=== PATIENT | female | born 1990 | race Caucasian/White ===

== ENCOUNTER 2019-12-25 22:47 | Emergency (ER) | payer OTHER ==
--- NOTE | 2019-12-25 22:52 | PDOC ---
Rapid Medical Evaluation Time Seen by Provider: 12/25/19 22:49 Medical Evaluation: 12/25/19 22:50 I performed a brief in-person evaluation of this patient. Pt is a 29 y/o female with right mid abdominal pain for the last 1 week. The patient denies any vomiting. She denies any fevers. She also admits to having vaginal bleeding for the last several months straight and has been seeing her actuarial manager for this. She has been getting worked up by for her vaginal bleeding. The patient denies any dysuria. Pertinent physical exam findings: Right mid abdominal tenderness to palpation, walking without difficulty I have ordered the following: labs, saline lock, imaging deferred to treated provider discretion Patient to proceed to ED for further evaluation. Discharge Disposition - Diagnosis Abdominal pain - Referrals - Patient Instructions - Post Discharge Activity
[2019-12-25 23:06] VITALS: BMI 44.8
--- NOTE | 2019-12-25 23:34 | PDOC ---
Documentation entered by Thomas Gaxiola SCRIBE, acting as scribe for Jose Ramon Braswell MD. Jose Ramon Braswell MD: This documentation has been prepared by the allyibe, Thomas Gaxiola SCRIBE, under my direction and personally reviewed by me in its entirety. I confirm that the documentation accurately reflects all work, treatment, procedures, and medical decision making performed by me. Attending Attestation - Resident Resident Name: PoKim - ED Attending Attestation I have performed the following: I have examined & evaluated the patient, The case was reviewed & discussed with the resident, I agree w/resident's findings & plan, Exceptions are as noted - HPI HPI: 12/25/19 23:30 The patient is a 29 year old female with no significant past medical history who presents to the emergency department with intermittent 5-10/10 right lower quadrant pain which sometimes radiates to the sheldon-umbilical region. Pt states the pain began a week ago with no known exacerbating or alleviating factors. She denies N/V. Denies diarrhea/constipation. Denies F/C. The patient also endorses vaginal bleeding for the last six months for which she has seen her MEDICAL TECHNOLOGIST MICROBIOLOGY. Allergies: NKDA Surgical Hx: section, Abdominoplasty - Physicial Exam PE: 12/25/19 23:12 GENERAL: Awake, alert, and fully oriented, in no acute distress. HEAD: No signs of trauma EYES: PERRLA, EOMI, sclera anicteric, conjunctiva clear ENT: Auricles normal inspection, hearing grossly normal, nares patent, oropharynx clear without exudates. Moist mucosa NECK: Nontender, no stepoffs, Normal ROM, supple, no lymphadenopathy, JVD, or masses LUNGS: Breath sounds equal, clear to auscultation bilaterally. No wheezes, and no crackles HEART: Regular rate and rhythm, normal S1 and S2, no murmurs, rubs or gallops ABDOMEN: + RLQ TTP, normoactive bowel sounds. No guarding, no rebound. No masses EXTREMITIES: Normal range of motion, no edema. No clubbing or cyanosis. No cords, erythema, or tenderness NEUROLOGICAL: Cranial nerves II through XII intact. 5/5 strength and sensation in all extremities, Normal speech, normal gait, normal cerebellar function SKIN: Warm, Dry, normal turgor, no rashes or lesions noted. - Medical Decision Making 12/25/19 23:35 29 F with RLQ pain x 1 week. Will obtain TVUS to r/o torsion. CT to r/o appy. - Labs, HCG - UA, UCx - TVUS - CTAP Pt signed out to Dr. Regalado at 12am, pending US and CT results Discharge - Discharge Information Problems reviewed: Yes Clinical Impression/Diagnosis: Abdominal pain, Diverticulitis Condition: Stable Disposition: HOME - Additional Discharge Information Prescriptions: Sulfamethoxazole/Trimethoprim [Bactrim Ds Tablet] 1 each PO BID #14 tablet metroNIDAZOLE [Flagyl -] 500 mg PO TID #21 tablet - Follow up/Referral Referrals: Xenia Matias MD [Staff Physician] - - Patient Discharge Instructions Patient Printed Discharge Instructions: DI for Diverticulitis Additional Instructions: You came into the ER for right sided abdominal pain. In the ED, you were evaluated with physical exam, ultrasound, and CT scan of your abdomen. Your ultrasound results were normal. The scan of your abdomen indicates that you have diverticulitis. You do not appear to be an acute need for immediate hospitalization. You were advised to follow up with your primary care doctor within 1 week. You were given a referral to Dr. Matias, a medical records receptionist. Call today to schedule appointment. Please bring a copy of your CT scan report to your a ppointment. You were given a prescription for Bactrim and Flagyl. Take Bactrim two times a day and take Flagyl three times a day for seven days. Come back to the ER immediately with any new or worsening concerns, such as high fevers, severe pain, constipation, or if unable to take your antibiotics. Thank you for coming to the [facility] ER. We hope you feel better soon! - Post Discharge Activity
[2019-12-25 23:59] LABS: EPI CELLS 13 /uL (0-25.1); HCG,QUALITATIVE URINE Negative; HYALINE CASTS 1 /uL (0-3.1); URINE APPEARANCE CLEAR; URINE BACTERIA 130 /uL (0-1359); URINE BILIRUBIN NEGATIVE (NEGATIVE); URINE COLOR YELLOW; URINE GLUCOSE (UA) NEGATIVE (NEGATIVE); URINE KETONE TRACE (NEGATIVE); URINE LEUK ESTERASE NEGATIVE (NEGATIVE); URINE NITRITE NEGATIVE (NEGATIVE); URINE PROTEIN NEGATIVE (NEGATIVE); URINE RBC 9 /uL (0-23.9); URINE WBC 4 /uL (0-25.8)
--- NOTE | 2019-12-26 00:18 | PDOC ---
History of Present Illness - General Chief Complaint: Pain Stated Complaint: ABD PAIN/VAGINAL BLEEDING Time Seen by Provider: 12/25/19 22:49 - History of Present Illness Initial Comments: Pt is a 29yo F with no significant PMH who presents with RLQ pain. States that pain has been intermittent over the last 8 days. Denies any notable triggers, notes that moving to a sitting position may aggravate pain. States that pain is sharp, 10/10 at worst, 5/10 at best, with occasional radiation to umbilicus described as vague, uncomfortable pain at umbilicus. Denies any aggravating or relieving factors. a/w dizziness; denies fevers, chills, n/v, diarrhea, chest pain, SOB. Reports 6-7mo history of light vaginal bleeding, seen by PCP, trialed on OCP for 3mo with relief of bleeding; stopped taking OCP 1 month ago, and daily bleeding has resumed. Is following up with PCP for this issue. PCP: Sandeep PMH: denies PSHx: C section, abdominoplasty Meds: denies All: denies Past History - Medical History Allergies/Adverse Reactions: Allergies Allergy/AdvReac Type Severity Reaction Status Date / Time No Known Allergies Allergy Verified 12/25/19 22:51 Home Medications: Ambulatory Orders Sulfamethoxazole/Trimethoprim [Bactrim Ds Tablet] 1 each PO BID #14 tablet 12/26/19 metroNIDAZOLE [Flagyl -] 500 mg PO TID #21 tablet 12/26/19 Anemia: No Asthma: No Cancer: No Cardiac Disorders: No COPD: No - Psycho-Social/Smoking History Smoking History: Never smoked - Substance Abuse Hx (Audit-C & DAST Scrn) How often the patient has a drink containing alcohol: Never Score: In Men: 4 or > Positive; In Women: 3 or > Positive: 0 Screen Result (Pos requires Nsg. Audit-10AR): Negative Review of Systems - Review of Systems Comments:: CONSTITUTIONAL:denies fever, chills, diaphoresis, generalized weakness, loss of appetite HEENT:denies rhinorrhea, nasal congestion, sore throat, ear pain, eye pain, visual Changes CARDIOVASCULAR:denies chest pain, palpitations, lightheadedness RESPIRATORY:denies cough, shortness of breath, wheezing GASTROINTESTINAL: reports abdominal pain, denies nausea, vomiting, diarrhea, constipation, melena, hematochezia GENITOURINARY:reports vaginal bleeding, denies dysuria, frequency, urgency, vaginal discharge MUSCULOSKELETAL:denies myalgia, arthralgia, back pain HEMATOLOGIC/IMMUNOLOGIC:denies easy bleeding, easy bruising ENDOCRINE: denies unexplained weight gain, unexplained weight loss NEUROLOGIC:reports dizziness, denies headache, loss of consciousness, bladder or bowel incontinence SKIN:denies rash, itching, pallor *Physical Exam - Vital Signs Last Vital Signs Temp Pulse Resp BP Pulse Ox 98.8 F 99 H 20 124/80 100 12/25/19 22:52 12/25/19 22:52 12/25/19 22:52 12/25/19 22:52 12/25/19 22:52 - Physical Exam General: awake, alert, fully oriented, in no acute distress, well developed, well nourished Head: normocephalic, atraumatic Eyes: PERRL, EOMI, anicteric sclera, conjunctiva clear ENT: hearing grossly normal, No nasal congestion Moist mucous membranes Lung: equal breath sounds b/l, CTA b/l, no crackles, wheezes; no distress, speaks full sentences Heart: RRR, normal S1, S2, no murmurs, rubs, gallops Abdomen: soft, tender to palpation in RLQ, normoactive bowel sounds, no guarding, rebound, masses; +Rosvings, +Psoas, -obturator Pelvic exam: external genitalia without lesions, no cervical motion tenderness, no discharge, scant amounts of blood, uterus is nontender and normal in size, adnexa are nontender and without masses Extremities: no edema, no erythema or tenderness, DP/PT pulses 2+ and symmetric, no clubbing, cyanosis Neuro: CN2-12 grossly intact, moves all extremities, normal speech, normal gait, sensation intact Skin: warm, dry, no rashes or lesions noted Medical Decision Making - Medical Decision Making Pt is a 29y F with no significant PMH who presents with RLQ abdominal pain. Vital Signs Period Temp Pulse Resp BP Sys/Woods Pulse Ox Last 24 Hr 98.8 F 99 20 124/80 100 DDx: appendicitis, ovarian pathology - torsion, cyst, hemorrhage, diverticulitis Plan: labs, CT a/p, TVUS Patient states that she does not want pain medication. Attempted ultrasound guided IV two times, pt was uncooperative and refused further attempts to place IV. UA with 3+ blood, expected given complaints of vaginal bleeding 12/26/19 01:23 Transvaginal ultrasound - normal exam; Transabdominal pelvic ultrasound: No mass identified. Endovaginal pelvic ultrasound:Uterus is anteverted and measures 8.3centimeters in length. The endometrium is 5millimeters in thickness. There are no fibroids. The right ovary measures 2.3centimeters in length, appears normal and demonstrates normal flow. Left ovary measures 2.0centimeters in length, appears normal and demonstrates normal flow. There is no significant free fluid. Pelvic duplex: There is normal arterial and venous flow in both ovaries. 12/26/19 01:44 CT A/P FINDINGS: Lung bases are clear. The visualized cardiac chambers are normal size and configuration. Normal liver, gallbladder, pancreas, spleen, adrenal glands and kidneys. Status post gastric sleeve. The abdominal small and large bowel are normal. There is no aortic aneurysm. There is no significant retroperitoneal lymphadenopathy. The pelvic small and large bowel are notable for mild focal inflammation of the posterior aspect of the proximal ascending colon with junctional luminal air felt represent diverticula and findings secondary to diverticulitis. No abscess or free air. The appendix is normal. The uterus and adnexal structures are normal. Urinary bladder is unremarkable. There is no pelvic free fluid. No discrete pelvic lymphadenopathy is identified. IMPRESSION: Uncomplicated right colonic diverticulitis. Given one dose of Bactrim DS and Flagyl, sent home with 7 day course of bactrim DS BID and Flagyl 500mg TID. Patient stable for discharge. Informed of all lab and imaging results. Given follow up instructions and strict return precautions. Patient expressed understanding and agree to plan. Disposition Discharge to home Discharge - Discharge Information Problems reviewed: Yes Clinical Impression/Diagnosis: Abdominal pain, Diverticulitis Condition: Stable Disposition: HOME - Additional Discharge Information Prescriptions: Sulfamethoxazole/Trimethoprim [Bactrim Ds Tablet] 1 each PO BID #14 tablet metroNIDAZOLE [Flagyl -] 500 mg PO TID #21 tablet - Follow up/Referral Referrals: Xenia Matias MD [Staff Physician] - - Patient Discharge Instructions Patient Printed Discharge Instructions: DI for Diverticulitis Additional Instructions: You came into the ER for right sided abdominal pain. In the ED, you were evaluated with physical exam, ultrasound, and CT scan of your abdomen. Your ultrasound results were normal. The scan of your abdomen indicates that you have diverticulitis. You do not appear to be an acute need for immediate hospitalization. You were advised to follow up with your primary care doctor within 1 week. You were given a referral to Dr. Matias, a [employer] lakes boatman. Call today to schedule appointment. Please bring a copy of your CT scan report to your appointment. You were given a prescription for Bactrim and Flagyl. Take Bactrim two times a day and take Flagyl three times a day for seven days. Come back to the ER immediately with any new or worsening concerns, such as high fevers, severe pain, constipation, or if unable to take your antibiotics. Thank you for coming to the [facility] ER. We hope you feel better soon! - Post Discharge Activity
[2019-12-26] MEDS ORDERED: SULFAMETHOXAZOLE/TRIMETHOPRIM 800MG/160MG D.S. TABLET PO ONE (01:51)
[2019-12-26] MEDS ORDERED: metroNIDAZOLE 250 MG TABLET PO ONE (01:52)
[2019-12-26] MEDS ORDERED: metroNIDAZOLE 250 MG TABLET ONE (01:54)
[2019-12-26] MEDS ORDERED: SULFAMETHOXAZOLE/TRIMETHOPRIM 800MG/160MG D.S. TABLET ONE (01:54)
[2019-12-26 02:19] VITALS: BP 122/86; PULSE 69; TEMP 98.6
== END 2019-12-26 02:19 | disposition home or self-care (01) ==
LOC: JER 22:47
DX: R10.9 Unspecified abdominal pain (principal)
CPT/HCPCS: 74176-TC; 76830-TC; 81003; 84703; 87086; 99284-25

== ENCOUNTER 2020-02-04 11:01 | Emergency (ER) | payer OTHER ==
[2020-02-04 11:07] VITALS: BP 127/70; PULSE 82; TEMP 97.1; BMI 46.4
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
== END 2020-02-04 12:29 | disposition home or self-care (01) ==
LOC: JER 11:01
DX: T21.22XA Burn of second degree of abdominal wall, initial encounter (principal)
CPT/HCPCS: 99282-25

== ENCOUNTER 2020-08-14 05:33 | Day surgery (SDC) | payer OTHER ==
[2020-08-11 09:19] VITALS: BMI 50.8
[2020-08-14] MEDS ORDERED: MIDAZOLAM HCL 2 MG/2 ML SINGLE DOSE VIAL ONE (10:52)
[2020-08-14] MEDS ORDERED: PROPOFOL 20 ML ONE ×2 (10:52→12:35)
[2020-08-14] MEDS ORDERED: oxyCODONE HCL 5 MG TABLET PO PRN (11:48)
[2020-08-14] MEDS ORDERED: ONDANSETRON 4 MG/2 ML VIAL IVPUSH PRN (11:48)
[2020-08-14] MEDS ORDERED: LACTATED RINGERS SOLUTION 1,000 ML IV SCH (12:00)
[2020-08-14 16:04] VITALS: BP 107/70; PULSE 81; TEMP 97.3
== END 2020-08-14 15:00 | disposition home or self-care (01) ==
LOC: JASU-SURG 05:33
PROVIDERS: ATTEND Obstetrics & Gynecology
PROC: 0UJD8ZZ Inspection of Uterus and Cervix, Via Natural or Artificial Opening Endoscopic (ICD-10-PCS; 2020-08-14)
PROC: 0UB97ZX Excision of Uterus, Via Natural or Artificial Opening, Diagnostic (ICD-10-PCS; principal; 2020-08-14 11:00)
PROC: 0UDB7ZX Extraction of Endometrium, Via Natural or Artificial Opening, Diagnostic (ICD-10-PCS; 2020-08-14 11:00)
DX: N84.0 Polyp of corpus uteri (principal)
CPT/HCPCS: 36415; 84703; 86850; 86900; 86901; 88305-TC; 94760

== ENCOUNTER 2021-01-20 23:56 | Emergency (ER) | payer OTHER ==
[2021-01-21 00:21] VITALS: BP 119/78; PULSE 88; TEMP 97.9; BMI 43.4
[2021-01-21] MEDS ORDERED: MAG HYDROX/AL HYDROX/SIMETH 30 ML UNIT-DOSE CUP PO ONE (01:24)
[2021-01-21] MEDS ORDERED: SUCRALFATE 1 GM TABLET (FP) PO SCH (01:30)
[2021-01-21] MEDS ORDERED: MAG HYDROX/AL HYDROX/SIMETH 30 ML UNIT-DOSE CUP ONE (01:35)
[2021-01-21] MEDS ORDERED: SUCRALFATE 1 GM TABLET (FP) ONE (01:35)
== END 2021-01-21 02:10 | disposition home or self-care (01) ==
LOC: JER 23:56
DX: R07.89 Other chest pain (principal); K21.9 Gastro-esophageal reflux disease without esophagitis
CPT/HCPCS: 71046-TC-FY; 93005; 93010; 99284-25

== ENCOUNTER 2021-02-04 20:05 | Emergency (ER) | payer OTHER ==
[2021-02-04 20:31] VITALS: BP 129/83; PULSE 99; TEMP 97.9; BMI 45.3
== END 2021-02-04 22:13 | disposition left against medical advice (07) ==
LOC: JER 20:05
DX: J30.9 Allergic rhinitis, unspecified (principal)
CPT/HCPCS: 99282-25

== ENCOUNTER 2021-02-08 18:47 | Emergency (ER) | payer OTHER ==
[2021-02-08 19:05] VITALS: BMI 49.4
[2021-02-08] MEDS ORDERED: DEXAMETHASONE SOD PHOSPHATE 10 MG/1 ML VIAL IVPUSH ONE (19:27)
[2021-02-08] MEDS ORDERED: ONDANSETRON 4 MG/2 ML VIAL IVPUSH ONE (19:39)
[2021-02-08] MEDS ORDERED: SODIUM CHLORIDE 0.9% 1000 ML INFUS.BAG IV ONE (19:39)
[2021-02-08] MEDS ORDERED: FAMOTIDINE 20 MG/50 ML IVPB 20 MG/50 ML MG IVPB ONE ×2 (19:39→20:20)
[2021-02-08] MEDS ORDERED: DEXAMETHASONE SOD PHOSPHATE 10 MG/1 ML VIAL ONE (20:19)
[2021-02-08] MEDS ORDERED: ALBUTEROL SO4 2.5/IPRATROPIUM 0.5 INH SOL 3 ML VIAL.NEB. NEB ONE (20:19)
[2021-02-08] MEDS ORDERED: ONDANSETRON 4 MG/2 ML VIAL ONE (20:19)
[2021-02-08] MEDS ORDERED: guaiFENesin 200 MG/10 ML 10 ML UNIT-DOSE CUPS PO ONE (20:31)
[2021-02-08] MEDS: ALBUTEROL SO4 2.5/IPRATROPIUM 0.5 INH SOL 3 ML VIAL.NEB. NEB SCH ×3 (20:35→21:27)
[2021-02-08] MEDS ORDERED: guaiFENesin 200 MG/10 ML 10 ML UNIT-DOSE CUPS ONE (20:51)
[2021-02-08 21:05] LABS: CHLORIDE 108 mmol/L (98-107); SODIUM 140 mmol/L (136-145)
[2021-02-08 21:06] LABS: BASO % 0.9 % (0-2.0); EOS % 6.9 % (0-4.5); HEMATOCRIT 38.1 % (32.4-45.2); HEMOGLOBIN 12.3 GM/dL (10.7-15.3); LYMPH % 22.1 % (8-40); MCH 24.7 pg (25.7-33.7); MCHC 32.3 g/dl (32.0-36.0); MEAN CELL VOLUME 76.5 fl (80-96); MEAN PLT VOLUME 10.1 fl (7.5-11.1); MONO % 7.5 % (3.8-10.2); NEUT % 62.6 % (42.8-82.8); PLATELET COUNT 229 10^3/uL (134-434); RBC 4.98 M/mm3 (3.60-5.2); RDW 16.7 % (11.6-15.6); WHITE BLOOD COUNT 11.9 K/mm3 (4.0-10.0)
[2021-02-08 21:08] LABS: ALBUMIN 3.5 g/dl (3.4-5.0); ANION GAP 5 MMOL/L (8-16); BLOOD UREA NITROGEN 16.4 mg/dL (7-18); CO2 26 mmol/L (21-32); GLUCOSE,RANDOM 81 mg/dL (74-106)
[2021-02-08 21:11] LABS: CREATININE 1.1 mg/dL (0.55-1.3); SGOT/AST 27 U/L (15-37); SGPT/ALT 27 U/L (13-61)
[2021-02-08 21:12] LABS: BILIRUBIN,TOTAL 0.1 mg/dL (0.2-1); TOT PROT 7.6 g/dl (6.4-8.2)
[2021-02-08 21:14] LABS: ALK PHOS 85 U/L (45-117)
[2021-02-08] MEDS ORDERED: AZITHROMYCIN 250 MG TABLET PO ONE (21:24)
[2021-02-08] MEDS ORDERED: AZITHROMYCIN 250 MG TABLET ONE (21:36)
[2021-02-08 22:00] VITALS: BP 116/78; PULSE 89; TEMP 98.5
== END 2021-02-08 21:59 | disposition home or self-care (01) ==
LOC: JER 18:47
PROC: 3E0F7GC Introduction of Other Therapeutic Substance into Respiratory Tract, Via Natural or Artificial Opening (ICD-10-PCS; principal; 2021-02-08)
PROC: 3E033GC Introduction of Other Therapeutic Substance into Peripheral Vein, Percutaneous Approach (ICD-10-PCS; principal; 2021-02-08)
DX: J40 Bronchitis, not specified as acute or chronic (principal)
CPT/HCPCS: 36415; 71046-TC-FY; 80053; 82550; 82553; 84484; 85025; 87804; 93005; 93010; 99285-25; C9803; J1100; U0003; U0005